=== PATIENT | male | born 1990 | race Hispanic/Latino ===

== ENCOUNTER 2017-05-27 12:08 | Emergency (ER) | payer OTHER ==
[2017-05-27 12:13] VITALS: BP 136/80
[2017-05-27] MEDS ORDERED: BICILLIN L-A IM ONE (13:05)
[2017-05-27] MEDS ORDERED: DECADRON IM ONE (13:05)
--- NOTE | 2017-05-27 13:05 | Emergency Department Report ---
ED ENT HPI - General Chief complaint: Sore Throat Stated complaint: FEVER, SORE THROAT Time Seen by Provider: 05/27/17 12:32 Source: patient Mode of arrival: Ambulatory Limitations: No Limitations - History of Present Illness Initial comments: 27-year-old male past medical history none presents with complaint of 2 days of sore throat and body aches. Patient is awake alert and oriented 3 fully lucid speaking in full sentences visible trismus or drooling. Able to tolerate liquids but solids are painful to swallow as per patient. Denies any other complaints. States he has been around several people who were diagnosed with throat infections with the last 2 weeks. MD complaint: sore throat Onset/Timin -: days(s) Location: throat Severity: moderate Severity scale (0 -10): 4 Quality: aching Consistency: intermittent Worsens with: swallowing Associated Symptoms: pain with swallowing, sore throat - Related Data Previous Rx's Medication Instructions Recorded Last Taken Type Dextromethorphan/Benzocaine 1 each PO Q4H PRN #1 box 05/27/17 Unknown Rx [Cepacol Sorethroat-Cough Emily] Ibuprofen [Motrin] 800 mg PO Q8HR PRN #30 tablet 05/27/17 Unknown Rx Allergies Allergy/AdvReac Type Severity Reaction Status Date / Time No Known Allergies Allergy Unverified 05/27/17 12:13 ED Dental HPI - General Chief complaint: Sore Throat Stated complaint: FEVER, SORE THROAT Time Seen by Provider: 05/27/17 12:32 Source: patient Mode of arrival: Ambulatory Limitations: No Limitations - Related Data Previous Rx's Medication Instructions Recorded Last Taken Type Dextromethorphan/Benzocaine 1 each PO Q4H PRN #1 box 05/27/17 Unknown Rx [Cepacol Sorethroat-Cough Emily] Ibuprofen [Motrin] 800 mg PO Q8HR PRN #30 tablet 05/27/17 Unknown Rx Allergies Allergy/AdvReac Type Severity Reaction Status Date / Time No Known Allergies Allergy Unverified 05/27/17 12:13 ED Review of Systems ROS: Stated complaint: FEVER, SORE THROAT Other details as noted in HPI Constitutional: denies: chills, fever Eyes: denies: eye pain, eye discharge, vision change ENT: throat pain. denies: ear pain Respiratory: denies: cough, shortness of breath, wheezing Cardiovascular: denies: chest pain, palpitations Endocrine: no symptoms reported Gastrointestinal: denies: abdominal pain, nausea, diarrhea Genitourinary: denies: urgency, dysuria Musculoskeletal: denies: back pain, joint swelling, arthralgia Skin: denies: rash, lesions Neurological: denies: headache, weakness, paresthesias Psychiatric: denies: anxiety, depression Hematological/Lymphatic: denies: easy bleeding, easy bruising ED Past Medical Hx - Past Medical History Previous Medical History?: No - Surgical History Past Surgical History?: No - Social History Smoking Status: Never Smoker Substance Use Type: None - Medications Home Medications: Home Medications Medication Instructions Recorded Confirmed Last Taken Type Dextromethorphan/Benzocaine 1 each PO Q4H PRN #1 box 05/27/17 Unknown Rx [Cepacol Sorethroat-Cough Emily] Ibuprofen [Motrin] 800 mg PO Q8HR PRN #30 tablet 05/27/17 Unknown Rx ED Physical Exam - General Limitations: No Limitations General appearance: alert, in no apparent distress - Head Head exam: Present: atraumatic, normocephalic - Eye Eye exam: Present: normal appearance, PERRL, EOMI - ENT ENT exam: Present: mucous membranes moist - Expanded ENT Exam Expanded Throat exam: Positive: normal inspection, tonsillar erythema, tonsillar exudate (visible left and right-sided tonsillar exudates, no visible peritonsillar abscess, uvula is midline oropharynx is patent) - Neck Neck exam: Present: normal inspection, lymphadenopathy (tender anterior cervical adenopathy) - Respiratory Respiratory exam: Present: normal lung sounds bilaterally. Absent: respiratory distress - Cardiovascular Cardiovascular Exam: Present: regular rate, normal rhythm. Absent: systolic murmur, diastolic murmur, rubs, gallop - GI/Abdominal GI/Abdominal exam: Present: soft, normal bowel sounds - Rectal Rectal exam: Present: deferred - Extremities Exam Extremities exam: Present: normal inspection - Back Exam Back exam: Present: normal inspection - Neurological Exam Neurological exam: Present: alert, oriented X3 - Psychiatric Psychiatric exam: Present: normal affect, normal mood - Skin Skin exam: Present: warm, dry, intact, normal color. Absent: rash ED Course Vital Signs 05/27/17 12:10 Temperature 99 F Pulse Rate 72 Respiratory 20 Rate Blood Pressure 136/80 O2 Sat by Pulse 100 Oximetry ED Medical Decision Making - Medical Decision Making A/P: Tonsillitis 1-empiric treatment with Bicillin 2-Motrin 800mg when necessary 3-lozenges when necessary 4-occurs the patient to remain well-hydrated. Patient is tolerating by mouth fluid without difficulty. Vital signs stable for discharge Critical care attestation.: If time is entered above; I have spent that time in minutes in the direct care of this critically ill patient, excluding procedure time. ED Disposition Clinical Impression: Tonsillitis Disposition: DC- TO HOME OR SELFCARE Is pt being admited?: No Does the pt Need Aspirin: No Condition: Stable Instructions: Strep Throat (ED), Tonsillitis (ED) Prescriptions: Dextromethorphan/Benzocaine [Cepacol Sorethroat-Cough Emily] 1 each PO Q4H PRN #1 box PRN Reason: Sore Throat Ibuprofen [Motrin] 800 mg PO Q8HR PRN #30 tablet PRN Reason: Pain Referrals: [facility] [Outside] - 3-5 Days [facility] [Outside] - 3-5 Days Forms: Accompanied Note, Work/School Release Form(ED) Time of Disposition: 13:14
== END 2017-05-27 13:39 | disposition home or self-care (01) ==
LOC: ED 12:08
DX: J03.90 Acute tonsillitis, unspecified (principal)
CPT/HCPCS: 87116; 87430; 96372; 99282; J0561; J1100